=== PATIENT | female | born 1985 | race Caucasian/White ===

== ENCOUNTER 2018-11-09 05:29 | Inpatient (IN) | payer OTHER ==
[2018-11-09] MEDS ORDERED: METHYLERGONOVINE 0.2 MG INJ IM ×2 (06:00→12:00)
[2018-11-09] MEDS ORDERED: OXYTOCIN 30 UNITS/LR 500 ML IV ×3 (06:00→12:00)
[2018-11-09] MEDS ORDERED: MISOPROSTOL 200 MCG TAB PR ×2 (06:00→12:00)
[2018-11-09] MEDS ORDERED: CARBOPROST 250 MCG INJ IM ×2 (06:00→12:00)
[2018-11-09 06:17] LABS: ADD MAN DIFF? NO
[2018-11-09 06:22] LABS: BASOPHILS % 0.4 % (0.0-2.0); EOSINOPHILS # 0.1 10^3/ul (0.0-0.5); EOSINOPHILS % 0.6 % (0.0-7.0); HEMATOCRIT 39.6 % (37.0-47.0); HEMOGLOBIN 13.4 g/dl (12.0-16.0); LYMPHOCYTES # 2.1 10^3/ul (0.8-2.9); LYMPHOCYTES % 18.7 % (15.0-51.0); MEAN CORPUSCULAR HEMOGLOBIN 31.5 pg (29.0-33.0); MEAN CORPUSCULAR HGB CONC 33.8 g/dl (32.0-37.0); MEAN CORPUSCULAR VOLUME 93.2 fl (82.0-101.0); MEAN PLATELET VOLUME 11.2 fl (7.4-10.4); MONOCYTE # 0.8 10^3/ul (0.3-0.9); MONOCYTES % 7.4 % (0.0-11.0); NEUTROPHIL # 7.8 10^3/ul (1.6-7.5); NEUTROPHILS % 71.4 % (39.0-77.0); PLATELET COUNT 140 10^3/UL (140-415); RED BLOOD COUNT 4.25 10^6/ul (4.20-5.40); RED CELL DISTRIBUTION WIDTH 13.3 % (11.5-14.5)
[2018-11-09] MEDS: LACTATED RINGER'S 1,000 ML IV ×3 (06:34→23:53)
[2018-11-09 06:43] LABS: INR 0.89; PARTIAL THROMBOPLASTIN TIME 25.6 Sec (23.0-35.0); PROTIME 12.2 Sec (11.9-14.9)
[2018-11-09 07:13] LABS: AMPHETAMINE/METHAMPHETAMINE NEGATIVE (NEGATIVE); BARBITURATES NEGATIVE (NEGATIVE); BENZODIAZEPINES NEGATIVE (NEGATIVE); CANNABINOIDS NEGATIVE (NEGATIVE); COCAINE NEGATIVE (NEGATIVE); OPIATES NEGATIVE (NEGATIVE)
[2018-11-09] MEDS ORDERED: CITRIC ACID/NA CITRATE 30 ML CUP (07:26)
[2018-11-09 07:27] LABS: HEPATITIS B SURFACE ANTIGEN NEGATIVE (NEGATIVE)
[2018-11-09] MEDS: CITRIC ACID/NA CITRATE 30 ML CUP PO (07:34)
[2018-11-09] MEDS ORDERED: KETOROLAC 30 MG INJ (07:41)
[2018-11-09] MEDS ORDERED: morphine SULFATE/PF (10 MG/10 ML) INJ (07:41)
[2018-11-09] MEDS ORDERED: ONDANSETRON 4 MG INJ (07:41)
[2018-11-09] MEDS ORDERED: METOCLOPRAMIDE 10 MG INJ (07:41)
[2018-11-09] MEDS ORDERED: EPHEDrine 25 MG/5 ML SYG (07:53)
[2018-11-09] MEDS ORDERED: PHENYLephrine (100 MCG/ML) 10ML SYG (07:59)
[2018-11-09] MEDS ORDERED: ONDANSETRON 4 MG INJ IV ×2 (09:00)
[2018-11-09] MEDS ORDERED: DIPHENHYDRAMINE 50 MG INJ IV ×2 (09:00)
[2018-11-09] MEDS ORDERED: NALOXONE (0.4 MG/ML) INJ IV (09:00)
[2018-11-09] MEDS ORDERED: morphine 2 MG INJ IV ×6 (09:00)
[2018-11-09] MEDS ORDERED: KETOROLAC 30 MG INJ IV (09:00)
[2018-11-09] MEDS: OXYTOCIN 30 UNITS/LR 500 ML IV ×2 (09:28→13:27)
[2018-11-09] MEDS: CEFAZOLIN 2 GM/50 ML (PMX) 50 ML IVPB ×3 (10:02→23:52)
[2018-11-09] MEDS ORDERED: NACL 0.9% 3 ML SYG IV (12:00)
[2018-11-09] MEDS ORDERED: OXYCODONE/ACETAMINOPHEN (5/325) TAB PO ×2 (12:00)
[2018-11-09] MEDS ORDERED: NA PHOSPHATE/BIPHOS 133 ML ENEMA PR (12:00)
[2018-11-09] MEDS ORDERED: CEFAZOLIN 2 GM/50 ML (PMX) 50 ML IVPB (12:00)
[2018-11-09] MEDS: IBUPROFEN 800 MG TAB PO ×2 (14:00→21:31)
[2018-11-09 15:11] LABS: RAPID PLASMA REAGIN NONREACTIVE (NR)
[2018-11-10] MEDS: KETOROLAC 30 MG INJ IV (04:11)
[2018-11-10] MEDS: LACTATED RINGER'S 1,000 ML IV ×2 (05:38→13:38)
[2018-11-10] MEDS: IBUPROFEN 800 MG TAB PO ×3 (06:00→21:58)
[2018-11-10] MEDS: CEFAZOLIN 2 GM/50 ML (PMX) 50 ML IVPB (07:49)
[2018-11-10 08:07] LABS: ADD MAN DIFF? NO
[2018-11-10 08:18] LABS: BASOPHILS % 0.2 % (0.0-2.0); EOSINOPHILS # 0.1 10^3/ul (0.0-0.5); EOSINOPHILS % 0.8 % (0.0-7.0); HEMATOCRIT 31.9 % (37.0-47.0); HEMOGLOBIN 10.7 g/dl (12.0-16.0); LYMPHOCYTES # 1.8 10^3/ul (0.8-2.9); LYMPHOCYTES % 15.1 % (15.0-51.0); MEAN CORPUSCULAR HEMOGLOBIN 31.9 pg (29.0-33.0); MEAN CORPUSCULAR HGB CONC 33.5 g/dl (32.0-37.0); MEAN CORPUSCULAR VOLUME 95.2 fl (82.0-101.0); MEAN PLATELET VOLUME 11.8 fl (7.4-10.4); MONOCYTE # 0.7 10^3/ul (0.3-0.9); MONOCYTES % 6.1 % (0.0-11.0); NEUTROPHILS % 76.9 % (39.0-77.0); PLATELET COUNT 127 10^3/UL (140-415); RED BLOOD COUNT 3.35 10^6/ul (4.20-5.40); RED CELL DISTRIBUTION WIDTH 13.4 % (11.5-14.5)
[2018-11-10 08:18] LABS: WHITE BLOOD COUNT 11.7 10^3/ul (4.8-10.8)
[2018-11-10 08:22] LABS: POSITIVE DIFF @See below
[2018-11-10] MEDS: SENNA/DOCUSATE NA (8.6MG/50MG) TAB PO ×2 (09:57→21:58)
[2018-11-10] MEDS: FERROUS SULFATE (EC) 325 MG TAB PO ×2 (09:57→21:58)
[2018-11-10] MEDS: LANOLIN HPA 1 PKT TOP (12:34)
[2018-11-10 14:09] LABS: RHOGAM PROFILE 1 1
[2018-11-11] MEDS: IBUPROFEN 800 MG TAB PO ×3 (06:13→21:49)
[2018-11-11 06:52] LABS: HEMATOCRIT 34.1 % (37.0-47.0); HEMOGLOBIN 11.4 g/dl (12.0-16.0)
[2018-11-11] MEDS: FERROUS SULFATE (EC) 325 MG TAB PO ×2 (09:35→21:49)
[2018-11-11] MEDS: SENNA/DOCUSATE NA (8.6MG/50MG) TAB PO ×2 (09:35→21:49)
[2018-11-12] MEDS: IBUPROFEN 800 MG TAB PO ×2 (05:52→13:36)
[2018-11-12] MEDS: FERROUS SULFATE (EC) 325 MG TAB PO (09:50)
[2018-11-12] MEDS: SENNA/DOCUSATE NA (8.6MG/50MG) TAB PO (09:50)
== END 2018-11-12 14:55 | disposition home or self-care (01) | DRG 785 ==
LOC: L-D 05:29 → PP1 11:45
PROVIDERS: Obstetrics & Gynecology
PROC: 10D00Z1 Extraction of Products of Conception, Low, Open Approach (ICD-10-PCS; principal; 2018-11-10)
PROC: 0UB70ZZ Excision of Bilateral Fallopian Tubes, Open Approach (ICD-10-PCS; 2018-11-10)
DX: O34.211 Maternal care for low transverse scar from previous cesarean delivery (principal); Z3A.39 39 weeks gestation of pregnancy; Z37.0 Single live birth; Z30.2 Encounter for sterilization
CPT/HCPCS: 80307; 85014; 85018; 85025; 85610; 85730; 86592; 86850; 86885; 86900; 86901; 87340; 88302; 99464